=== PATIENT | male | born 1960 | race Caucasian/White ===

== ENCOUNTER 2020-12-23 15:11 | Emergency (ER) | payer MEDICAID, SELFPAY ==
[2020-12-23 15:21] VITALS: BP 170/90; PULSE 80; RESP 16; TEMP 36.4; O2SAT 99; BMI 29.2
[2020-12-23] MEDS: Diphth,Pertus(ACell),Tet Adult 0.5 ML SYRINGE IM (16:34)
--- NOTE | 2020-12-23 16:39 | ED_ITS ---
HPI - Wound/Laceration General Chief Complaint: Wound/Laceration Stated Complaint: nail in foot Time Seen by Provider: 12/23/20 15:56 Source: patient Mode of arrival: ambulatory Limitations: no limitations History of Present Illness HPI narrative: States stepped on a screw at work which penetrated his shoe and neck the bottom of his left foot just proximal to the fat pad. States it felt like just a prick and was able to lift his foot and screw fully intact came out. States he is not sure when his tetanus vaccination was and this is the main reason he came here. This occurred today at work just prior to arrival. Onset (ago): minute(s) Location: other (Left foot) Extremity Location: left: foot Place: work Patient tetanus UTD: No Context: accidental Associated symptoms: none Treatments prior to arrival: other (Clean site with alcohol prep wipe ) Related Data Previous Rx's Medication Instructions Recorded ciprofloxacin HCl [Cipro] 500 mg PO Q12H #14 tab 12/23/20 Allergies Allergy/AdvReac Type Severity Reaction Status Date / Time penicillin V Allergy Unknown swelling Verified 12/23/20 15:21 Penicillins Allergy Unknown RASH Verified 12/23/20 15:21 Review of Systems Review of Systems: Constitutional: No Weight loss, No Fever, No Chills, No Night Sweats, No Fatigue, No Malaise ENT/Mouth: No Hearing loss, No Ear Pain, No Nasal Congestion, No Sinus Pain, No Hoarseness, No sore throat, No Rhinorrhea, No Swallowing Difficulty Eyes: No Eye Pain, No Swelling, No Redness, No Foreign Body, No Discharge, No Vision Changes Cardiovascular: No Chest Pain, No SOB, No Dyspnea on Exertion, No Orthopnea, No Edema, No Palpitations Respiratory: No Cough, No Sputum, No Wheezing, No Smoke Exposure, No Dyspnea Gastrointestinal: No Nausea, No Vomiting, No Diarrhea, No Constipation, No abdominal Pain, No Hematochezia, No Melena Genitourinary: Negative Musculoskeletal: No joint pain, No Myalgias, No Joint Swelling Skin: No Skin Lesions, No rash, PW as noted per HPOI Neuro: No Weakness, No Numbness, No Paresthesias, No Loss of Consciousness, No Dizziness, No Headache Psych: No Social Issues Heme/Lymph: No Bruising, No Bleeding,No Lymphadenopathy Endocrine: No Polyuria, No Polydipsia, No Temperature Intolerance Yes all other systems are reviewed and are negative [facility] Past Medical History Medical History (Updated 12/24/20 @ 00:01 by Background Dima) Asthma Diabetes Social History Social History Advance Directives: No Advance Directives Information Provided: Yes Physical Exam Vital Signs: Vital Signs: Last Vital Signs Temp 97.5 F 12/23/20 15:21 Pulse 80 12/23/20 15:21 Resp 16 12/23/20 15:21 BP 170/90 H 12/23/20 15:21 Pulse Ox 99 12/23/20 15:21 Body Mass Index 29.2 Reviewed Const: General: cooperative and healthy appearing; No acute distress or intoxicated appearing Nutritional Appearance: average body habitus Orientation/consciousness: patient oriented x3 Resp: Effort & Inspection: normal respiratory effort Cardio: Jugular venous distension: no JVD Skin: General skin exam: no rashes or lesions noted Neuro: General: patient oriented x3 Extrem: General: Yes normal to inspection Ankle/foot/toe images: 1. Less than 0.5 mm a brace like area. Slightly dry blood. No TTP. No active bleeding. No discharge. No erythema. No induration. Course Course Course Narrative: PW w/o evidence of foreign body. Given tetanus vaccination. Prophylactic antibiotics given this occurred at work will follow up with [facility] for her feel comfortable plan. Stable for discharge. Discharge Plan Discharge Clinical Impression: Puncture wound of foot, left, Tetanus-diphtheria vaccination administered at current visit Patient Disposition: Home, Self-Care Instructions: Puncture Wound in the Foot (ED) Additional Instructions: Keep site clean and dry Compresses Take your antibiotics as prescribed You were given tetanus vaccination which is good for 10 years Return if any concerns or worsening symptoms otherwise follow up with her primary care doctor as discussed Thank you Prescriptions: New ciprofloxacin HCl [Cipro] 500 mg tablet 500 mg PO Q12H Qty: 14 RF: 0 Referrals: Shae Freeman MD [Primary Care Provider] - 3 days Interventions: ED Discharge Assessment Last Done: 12/23/20 16:57 Discharge Date/Time: 12/23/20 16:58
== END 2020-12-23 16:58 | disposition home or self-care (01) ==
PROVIDERS: Emergency Provider Internal Medicine; PCP Family Medicine
DX: S91.332A Puncture wound without foreign body, left foot, initial encounter (principal); W45.0XXA Nail entering through skin, initial encounter; Y93.89 Activity, other specified; Y92.59 Other trade areas as the place of occurrence of the external cause; Y99.0 Civilian activity done for income or pay
CPT/HCPCS: 90471; 90715; 99283; 99284

== ENCOUNTER 2021-08-06 11:44 | Emergency (ER) | payer MEDICAID, SELFPAY ==
[2021-08-06 12:00] VITALS: BP 157/90; PULSE 87; RESP 18; TEMP 36.6; O2SAT 98; BMI 23.7
--- NOTE | 2021-08-06 14:03 | ED_ITS ---
HPI - General Adult General Chief complaint: General Medical Stated complaint: insect bite Time Seen by Provider: 08/06/21 13:37 Source: patient Mode of arrival: ambulatory Limitations: no limitations History of Present Illness HPI narrative: 61-year-old male past medical history significant for diabetes and asthma presents to the emergency department with concerns of a tick bite 2 weeks ago. He states that he found a tic over his right scrotum, that he had to remove while he was in the shower. He states that he did not think much of it initially, but now would like to get tested for lyme disease. He states he is not having pain over the site and he isn't having any other symptoms at this time. He just wanted to play it safe. Denies fevers, chills, nausea, vomiting, abdominal pain, MICHEL,CP,SOB complaint: tick bite Onset (ago): week(s) (2) Location: genitals (right side of scrotum) Radiation: non-radiation Relieving factors: none Exacerbating factors: none Associated symptoms: denies other symptoms Treatments prior to arrival: none Related Data Previous Rx's Medication Instructions Recorded ciprofloxacin HCl 500 mg tablet 500 mg PO Q12H #14 tab 12/23/20 (Cipro) doxycycline hyclate 100 mg capsule 100 mg PO BID 21 Days #42 cap 08/06/21 Allergies Allergy/AdvReac Type Severity Reaction Status Date / Time penicillin V Allergy Unknown swelling Verified 12/23/20 15:21 Penicillins Allergy Unknown RASH Verified 12/23/20 15:21 Review of Systems Review of Systems: Constitutional : No Weight loss, No Fever, No Chills, No Night Sweats, No Fatigue, No Malaise ENT/Mouth : No Hearing loss, No Ear Pain, No Nasal Congestion, No Sinus Pain, No Hoarseness, No sore throat, No Rhinorrhea, No Swallowing Difficulty Eyes: No Eye Pain, No Swelling, No Redness, No Foreign Body, No Discharge, No Vision Changes Cardiovascular : No Chest Pain, No SOB, No Dyspnea on Exertion, No Orthopnea, No Edema, No Palpitations Respiratory : No Cough, No Sputum, No Wheezing, No Smoke Exposure, No Dyspnea Gastrointestinal : No Nausea, No Vomiting, No Diarrhea, No Constipation, No abdominal Pain, No Hematochezia, No Melena Genitourinary : no irregular bleeding, No Dysuria, No Urinary Frequency, No Hematuria, No Urinary Incontinence, No Urgency, No Flank Pain, No Urinary Flow Changes, No Hesitancy Musculoskeletal : No joint pain, No Myalgias, No Joint Swelling Skin : No Skin Lesions, No rash Neuro : No Weakness, No Numbness, No Paresthesias, No Loss of Consciousness, No Dizziness, No Headache Psych : No Anxiety/Panic, No Depression, No SI/HI/AH/VH, No Social Issues, Yes all other systems are reviewed and are negative [facility] Past Medical History Attestation statement: The following information was validated with the patient. Source: old records reviewed and nursing notes reviewed Medical History Asthma Diabetes Social History Social History Advance Directives: Yes Advance Directives Information Provided: Yes Advance Directives on File: No Physical Exam Vital Signs: Vital Signs: Last Vital Signs Temp 97.8 F 08/06/21 12:00 Pulse 87 08/06/21 12:00 Resp 18 08/06/21 12:00 BP 157/90 H 08/06/21 12:00 Pulse Ox 98 08/06/21 12:00 Body Mass Index 23.7 vital signs have been reviewed as normal and appeared to be correct. Blood pressure hypertensive 150/90. Heart rate normal. Respiration rate normal. Temperature normal. Oxygen saturation normal. Appearance: Alert. Oriented X3. No acute distress. Head: Normal external exam. Normocephalic. Atraumatic. Eyes: PERRLA. EOMI. Conjunctiva and sclera normal. Eyelids normal. ENT: Pharynx normal. Uvula midline. Moist mucous membranes. Neck: Normal inspection. Neck supple. FROM. No adenopathy. No meningeal signs. CVS: Normal heart rate and rhythm. Heart sound normal. No murmurs noted. Pulses normal throughout. Respiratory: No respiratory distress. Painless inspiration. Breath sounds normal. No wheezes/rales/rhonchi noted. Chest nontender. No accessory muscle usage noted or decreased air movement noted. Abdomen: Soft and nontender. Bowel sounds normal in all 4 quadrants. No distention noted. No organomegaly noted. No visible injury noted. : Chaperoned by Susanita, PA-C. Normal external exam. No masses/lumps/ecchymosis/edema/erythema/lacerations/lesions/vesicles/induration or tenderness noted. No hernia noted. No inguinal lymphadenopathy noted. N ormal penis free of discharge. The scrotum is normal. Testicles are both descended bilaterally and appear normal. No hydrocele or scrotal mass/swelling noted. No varicocele. Epididymides normal. No blue dot sign. Back: No CVA tenderness. Full range of motion noted. Skin: Skin warm and dry. Normal skin color. Normal skin turgor. No rashes/lesions/lacerations noted. Extremities: Extremities exhibit normal range of motion. Extremities nontender. Neuro: Oriented X 3. No motor deficit. No sensory deficit. Reflexes normal. Course Reevaluation(s) Reevaluation #1: Lab show no acute infection, no evident electrolyte abnormalities. Lyme titers pending. Patient will be called with positive results. He is safe for discharge home. Time: 14:31 Medical Decision Making MDM Narrative Medical decision making narrative: 1400 61 yo male pmhx diabetes, asthma presents to the ED for concern of lyme disease X2 weeks. He states two weeks ago he removed a tick from his right scrotum in the shower. He is unsure how long the tick was on him for. He states he decided to come in, because he thought this could potentially be dangerous. He is asymptomatic. Upon physical examination and lungs are clear to auscultation, S1 and S2 appreciated free of murmurs. Scan is Sara, no skin rashes, lesions no erythema migrans noted. No focal neuro deficits. Sensory and motor intact upper and lower extremities. Abdomen soft nontender nondistended. Plan at this time is to obtain Lyme titers, CBC, BMP. To rule out infections, anemia, and Lyme disease. Patient will be discharged home on doxycycline, for 21 days, he will be called with any positive test results. He has been educated to stay out of the sun on this medication. He should return to the emergency department with new or worsening symptoms. Safe for discharge home. Medical Records Medical records reviewed: Yes I reviewed the patient's medical records. Lab Data Lab results reviewed: Yes I reviewed the patient's lab results. Result diagrams: 08/06/21 14:01 08/06/21 14:01 Labs: Lab Results 08/06/21 08/06/21 Range/Units 14:01 14:01 WBC 8.4 (4.8-10.8) X10*3/uL RBC 4.68 (4.60-5.80) X10*6/uL Hgb 14.4 (14.0-18.0) g/dl Hct 42.0 (42.0-52.0) % MCV 89.7 (80.0-98.0) fL MCH 30.8 (27.0-33.0) pg MCHC 34.3 (31.0-36.0) g/dl RDW 12.7 (11.0-16.0) % Plt Count 163 (160-400) X10*3/uL MPV 10.3 (9.4-12.4) fL Immature Gran % (Auto) 0.1 (0.0-0.4) % Neut % (Auto) 70.8 (45-73) % Lymph % (Auto) 15.0 L (20-40) % [place] % (Auto) 9.4 (2-11) % Eos % (Auto) 4.3 H (0-4) % Baso % (Auto) 0.4 (0-2) % Lymph # (Auto) 1.3 (1.2-4.9) X10*3/uL [place] # (Auto) 0.8 (0.1-1.2) X10*3/uL Eos # (Auto) 0.4 (0.0-0.4) X10*3/uL Baso # (Auto) 0.0 (0.0-0.2) X10*3/uL Abs Immat Gran (auto) 0.01 (0.00-0.03) X10*3/uL Absolute Neuts (auto) 5.98 (2.0-8.3) x10*3/uL Absolute Nucleated RBC 0.000 (0.0-0.012) X10*3/uL Nucleated RBC % (auto) 0.0 (0.0-0.2) /100WBC Sodium 138 (135-145) mmol/L Potassium 4.1 (3.3-5.1) mmol/L Chloride 105 (96-108) mmol/L Carbon Dioxide 26 (22-29) mmol/L Anion Gap 11 L (12-20) BUN 9 (9-16) mg/dL Creatinine 0.98 (0.5-1.4) mg/dL Estim Creat Clear Calc 87.1 Estimated GFR > 60 Random Glucose 160 H (60-115) mg/dL Calcium 8.8 (8.4-10.2) mg/dL Discharge Plan Discharge Clinical Impression: Tick bite Qualifiers: Encounter type: initial encounter Patient Disposition: Home, Self-Care Instructions: Tick Bite (ED) Additional Instructions: Take all antibiotics. Stay out of direct sunlight We will call you if your lyme test is positive Follow up with PCP Return to ED with new or worsening symptoms Prescriptions: New doxycycline hyclate 100 mg capsule 100 mg PO BID 21 Days Qty: 42 RF: 0 No Action ciprofloxacin HCl [Cipro] 500 mg tablet 500 mg PO Q12H Qty: 14 RF: 0 Referrals: Shae Freeman MD [Primary Care Provider] - 2 days Print Language: Kosovan
[2021-08-06 14:05] LABS: Basophils Percent Auto 0.4 % (0-2); Eosinophils Absolute Auto 0.4 X10*3/uL (0.0-0.4); Eosinophils Percent Auto 4.3 % (0-4); Hemoglobin 14.4 g/dl (14.0-18.0); Imm Gran Abs Auto 0.01 X10*3/uL (0.00-0.03); Imm Gran Pct Auto 0.1 % (0.0-0.4); Lymphocytes Absolute Auto 1.3 X10*3/uL (1.2-4.9); MANUAL DIFF FLAG NO; Mean Corpuscular HGB Conc 34.3 g/dl (31.0-36.0); Mean Corpuscular Hemoglobin 30.8 pg (27.0-33.0); Mean Corpuscular Volume 89.7 fL (80.0-98.0); Mean Platelet Volume 10.3 fL (9.4-12.4); Monocytes Absolute Auto 0.8 X10*3/uL (0.1-1.2); Monocytes Percent Auto 9.4 % (2-11); Neutrophils Absolute Auto 5.98 x10*3/uL (2.0-8.3); Neutrophils Percent Auto 70.8 % (45-73); Platelet Count 163 X10*3/uL (160-400); Red Blood Count 4.68 X10*6/uL (4.60-5.80); Red Cell Distribution Width 12.7 % (11.0-16.0); White Blood Count 8.4 X10*3/uL (4.8-10.8)
[2021-08-06 14:21] LABS: Anion Gap 11 (12-20); Blood Urea Nitrogen 9 mg/dL (9-16); Calcium 8.8 mg/dL (8.4-10.2); Carbon Dioxide 26 mmol/L (22-29); Chloride 105 mmol/L (96-108); Creatinine Clr Calc Pharmacy 87.1; Estimated Glomerular Filt Rate > 60; Glucose Random 160 mg/dL (60-115); Potassium 4.1 mmol/L (3.3-5.1); Sodium 138 mmol/L (135-145)
[2021-08-07 09:20] LABS: Lyme Abs Screen <0.90 index
== END 2021-08-06 14:48 | disposition home or self-care (01) ==
PROVIDERS: Physician Assistant Medical; Emergency Provider Emergency Medicine; PCP Family Medicine
DX: S30.863A Insect bite (nonvenomous) of scrotum and testes, initial encounter (principal); E11.9 Type 2 diabetes mellitus without complications; J45.909 Unspecified asthma, uncomplicated; W57.XXXA Bitten or stung by nonvenomous insect and other nonvenomous arthropods, initial encounter; Y93.9 Activity, unspecified; Y92.9 Unspecified place or not applicable; Y99.9 Unspecified external cause status
CPT/HCPCS: 36415; 80048; 85025; 86617; 86618; 99283

== ENCOUNTER 2024-02-10 13:37 | Emergency (ER) | payer MEDICARE, MEDICAID, SELFPAY ==
--- NOTE | ~2024-02-10 | XR_ITS ---
EXAMINATION: XR SHOULDER, LEFT CLINICAL INFORMATION: Left shoulder pain COMPARISON: None available. TECHNIQUE: AP external rotation, Grashey, scapular Y, and axillary views of the left shoulder. FINDINGS: There is narrowing of the left glenohumeral joint space and acromioclavicular joint space but no fracture, dislocation or destructive lesion. No erosive change. XR/XR shoulder LT min 2V IMPRESSION: Degenerative change noted. No acute findings.
[2024-02-10 13:51] VITALS: BP 208/121; PULSE 94; RESP 15; TEMP 36.6; O2SAT 98; BMI 27.8
--- NOTE | 2024-02-10 13:59 | ED_ITS ---
HPI - General Adult General Chief complaint: General Medical Stated complaint: Chest pain Time Seen by Provider: 02/10/24 15:02 Source: patient Mode of arrival: ambulatory Limitations: language barrier (Australian-speaking spanish interpreter/translator used) History of Present Illness HPI narrative: 63 yo [place] islander-speaking male with PMH significant for DM and HTN presents for evaluation of his left shoulder. [facility] interpreter deafBishnu, translated visit. Patient states he was working under a car that was held up by a refugio when his son briefly lowered it accidentally. He states the car barely touched him and it was lowered for a few seconds. He states he is in no pain and came to ED to be evaluated to be safe. BP 208/121 mmHg initially upon presentation. Repeat BP 187/123 mmHg. Patient states he was unable to take BP medications today. Denies headaches, blurred vision, chest pain, SOB, abdominal pain, N/V/D, pain in extremities or paresthesias. MD complaint: Left shoulder trauma Onset (ago): hour(s) Location: upper extremity (Left shoulder) Relieving factors: none Exacerbating factors: none Associated symptoms: denies other symptoms Treatments prior to arrival: none Related Data Previous Rx's ?Medication ?Instructions ?Recorded ciprofloxacin HCl 500 mg tablet 500 mg PO Q12H #14 tabs 12/23/20 (Cipro) doxycycline hyclate 100 mg capsule 100 mg PO BID 21 days #42 caps 08/06/21 Allergies Allergy/AdvReac Type Severity Reaction Status Date / Time penicillin V Allergy Unknown swelling Verified 02/10/24 13:54 Penicillins Allergy Unknown RASH Verified 02/10/24 13:54 seafood Allergy Unknown Verified 02/10/24 13:54 Review of Systems Review of Systems: Yes all other systems are reviewed and are negative [facility] Past Medical History Medical History Asthma Diabetes Social History Social History Advance Directives: No Advance Directives Information Provided: No Physical Exam ED Vital Signs: Vital Signs - 24 hr 02/10/24 13:51 02/10/24 15:25 02/10/24 15:49 Temperature 98 F Pulse Rate 94 Respiratory Rate 15 Blood Pressure 208/121 H 187/123 H 187/123 H Pulse Oximetry 98 Oxygen Delivery Method Room Air 02/10/24 17:03 Temperature 98.6 F Pulse Rate 88 Respiratory Rate 18 Blood Pressure 185/96 H Pulse Oximetry 98 Oxygen Delivery Method Room Air BMI result Body Mass Index 27.8 Appearance: Alert. Oriented X3. No acute distress. HEENT: normal inspection CVS: Normal heart rate and rhythm. Pulses normal. Respiratory: No respiratory distress. Skin: Skin warm and dry. Normal skin color. Normal skin turgor. No rashes. Extremities: full ROM of left upper extremity. No erythema, edema, or ecchymosis. nontender. strength and sensation is normal Neuro: Oriented X 3. No motor deficit. No sensory deficit. Course Course Course Narrative: RME: 63 yold male with pmh of DM and HTN presents to the ED for car pinning his left shoulder for 10 seconds. Patient states he was working under a car that elevated with a refugio and his son lowered the refugio by accident. Patient states the car was lowered unto his left shoulder only and was only for about 10 seconds. Patient states car did not touch his torso or head. Patient states car did not drop on him. Was lowered slowly, but pinned his left shoulder due to son not being aware he was still working under the car. physical exam negative for signs of head injury, neck injury, abodmen/chest ecchymosis/tenderness, or extremitie abrnomalitiy. order only left shoulder xray. hypertenisve. did not take HTN meds today. WIll recehck blood pressure Medications Administered Discontinued Medications Generic Name Dose Route Start Last Admin Trade Name Freq PRN Reason Stop Dose Admin Amlodipine Besylate 10 mg 02/10/24 15:40 02/10/24 15:49 Amlodipine Besylate 10 Mg Tablet PO 02/10/24 15:41 10 mg ONCE ONE Administration Protocol Amlodipine 10 mg PO. Medical Decision Making Medical Decision Making MDM Narrative: 63 yo cay[place] islander-speaking male with PMH significant for DM and HTN presents for evaluation of his left shoulder. He was working under a car when it was lowered accidentally, briefly pinning his shoulder. He denies any pain. ROS unremarkable. On exam, no tenderness to palpation, full ROM, no erythema, edema, or ecchymosis. X-ray of left shoulder revealed degenerative change, but no acute findings. Diagnosis likely osteoarthritis of left shoulder. BP 208/121 mmHg initially upon presentation. Repeat BP 187/123 mmHg --> 186/96. Patient states he was unable to take BP medication today. Given 10 mg of amlodipine in [facility], as that is his home medication. No chest pain, headache or vision changes. patient wants to go home. spanish interpreter/translator used to discuss the results and concerns with his high blood pressure. He states he will take his medications and follow-up with his primary care doctor. He was given strict return precautions. Okay for discharge home Differential Diagnosis Differential Diagnoses: The differential diagnosis associated with the presentation includes Shoulder osteoarthritis, proximal humerus fracture, clavicular fracture, shoulder dislocation Essential hypertension, malignant hypertension, hypertensive urgency, hypertensive emergency Admission/Observation Consideration of admission/observation: Escalation of care including admission/observation considered Independent Interpretation I performed an independent interpretation of an: Plain X-Ray Interpretation: No acute findings. No fractures. Radiology Impression Discussion of test interpretation with radiology: I have reviewed the radiologist's reading. Radiologist Impression: EXAMINATION: XR SHOULDER, LEFT CLINICAL INFORMATION: Left shoulder pain COMPARISON: None available. TECHNIQUE: AP external rotation, Grashey, scapular Y, and axillary views of the left shoulder. FINDINGS: There is narrowing of the left glenohumeral joint space and acromioclavicular joint space but no fracture, dislocation or destructive lesion. No erosive change. XR/XR shoulder LT min 2V IMPRESSION: Degenerative change noted. No acute findings. External Record Review External record reviewed: Inpatient record Tests considered The following testing was considered but not selected: EKG, lab workup and urinalysis were considered given his very high blood pressure however he was asymptomatic Prescription Management I considered prescription management with: Pain Medication Chronic Conditions Patient?s care impacted by: Diabetes and Hypertension Critical Care Time Critical Care Time Critical Care Time: No Discharge Plan Discharge Clinical Impression: Osteoarthritis of left shoulder Qualifiers: Osteoarthritis type: primary Qualified Code(s): M19.012 - Primary osteoarthritis, left shoulder Patient Disposition: Home, Self-Care Instructions: Osteoarthritis (DC) Additional Instructions: You were evaluated today for left shoulder trauma. X-ray of left shoulder showed no acute findings, however there were age-related changes noted. Recommend following up with PCP regarding potential osteoarthritis of left shoulder. Return to ED if symptoms worsen or new symptoms arise. Your blood pressure was elevated today to 208/121 mmHg and 187/123 mmHg when repeated. You were given 10 mg of amlodipine to lower blood pressure. Encourage compliance with your daily blood pressure medications and monitor your blood pressure at home. follow-up with your doctor for this. If you develop new or worsening symptoms call 911 or come back to the ER for further evaluation. Prescriptions: No Action ciprofloxacin HCl [Cipro] 500 mg tablet 500 mg PO Q12H Qty: 14 0RF doxycycline hyclate 100 mg capsule 100 mg PO BID 21 Days Qty: 42 0RF Referrals: Shae Freeman MD [Primary Care Provider] - Interventions: ED Discharge Assessment Last Done: 02/10/24 17:03 Discharge Date/Time: 02/10/24 17:04 Print Language: Australian
--- OUTSIDE RECORDS SUMMARY | 2024-02-10 14:00 | XMS_ITS | Continuity of Care Document ---
Author Organization [facility] ter Address [address] [place] [id number]- Care Team Providers Care Motion Picture Projectionist Name Role Phone Shae Freeman MD Primary Care Physician [phone] Encounter [facility] Date(s): 08/10/21 - 08/10/[address] [address]- Discharge Disposition: A-D/C Home Attending Physician: Randy Reese MD Admitting Physician: Randy Reese MD Referring Physician: Not on Staff, Referring MD Allergies, Adverse Reactions, Alerts Substance Reaction Severity Status penicillin Active Medications Beconase AQ 0.042 mg/inh spray 1 puffs, Nares, Both, 2 times a day, # 1 bottle, 0 Refills, Maintenance Start Date: 03/21/10 Status: Ordered Benadryl Maximum Strength 2% cream rub small amount in well to rash, Topically, 2 times a day, # 200 Gm, 0 Refills Start Date: 02/07/09 Stop Date: 03/09/09 Status: Ordered prednisone 10 mg oral tablet 20 mg, 2, tablet, By Mouth, 2 times a day, # 20 tablet, 0 Refills Start Date: 02/07/09 Stop Date: 02/12/09 Status: Ordered prednisone 20 mg oral tablet 2 tablets, By Mouth, Daily, # 10 tablet, Refills 0, Tot. Refills 0, take 2 pills in the AM with food, 01/26/09 12:23:00 Start Date: 01/26/09 Stop Date: 02/25/09 Status: Ordered Vital Signs Most recent to oldest [Reference Range]: 1 Oxygen Saturation [94-100 %] 100 % (08/10/21 7:20 PM) Pulse Rate [55-90 bpm] 90 bpm (08/10/21 7:20 PM) Blood Pressure [90-138/55-84 mm Hg] 170/ 101mm Hg *H* (08/10/21 7:20 PM) Respiratory Rate [16-30 br/min] 18 br/mi n (08/10/21 7:20 PM) Temperature [96.8-100.4 DegF] 98.5 DegF (08/10/21 7:20 PM) Mode of Delivery (Oxygen) Room air (08/10/21 7:20 PM) Blood pressure sites Arm, right (08/10/21 7:20 PM) Temperature Route Oral (08/10/21 7:20 PM)
[2024-02-10 15:25] VITALS: BP 187/123
[2024-02-10 15:49] VITALS: BP 187/123
[2024-02-10] MEDS: amLODIPine Besylate 10 MG TABLET PO (15:49)
[2024-02-10 17:03] VITALS: BP 185/96; PULSE 88; RESP 18; TEMP 37; O2SAT 98
== END 2024-02-10 17:04 | disposition home or self-care (01) ==
PROVIDERS: Emergency Provider Emergency Medicine; PCP Family Medicine
DX: M19.012 Primary osteoarthritis, left shoulder (principal); R07.89 Other chest pain
CPT/HCPCS: 73030; 99283